=== PATIENT | female | born 1980 | race Caucasian/White ===

== ENCOUNTER → 2018-09-01 | Day surgery (SDC) | payer BC ==
[2018-08-28 16:38] LABS: BASOPHILS # (AUTO) 0.1 (0.0-0.1); BASOPHILS % 0.8 % (0.0-1.0); EOSINOPHILS # (AUTO) 0.5 (0.0-0.4); EOSINOPHILS % 6.2 % (0.0-6.0); HEMATOCRIT 38.9 % (34.2-44.1); HEMOGLOBIN 12.6 g/dL (12.0-16.0); LYMPHOCYTES # (AUTO) 2.7 (1.0-3.2); LYMPHOCYTES % 32.8 % (18.0-39.1); MEAN CORPUSCULAR HEMOGLOBIN 30.4 pg (28-32); MEAN CORPUSCULAR HGB CONC 32.4 g/dL (31-35); MONOCYTES # (AUTO) 0.5 (0.2-0.8); MONOCYTES % 5.8 % (4.4-11.3); NEUTROPHILS # (AUTO) 4.5 (2.1-6.9); NEUTROPHILS % 54.3 % (38.7-80.0); PLATELET COUNT 225 x10e3/uL (140-360); RED BLOOD COUNT 4.14 x10e6/uL (3.6-5.1)
[~2018-09-01] MED LIST: ACETAMINOPHEN 1000 MG/100 ML 100 ML IV ONE; ADDERALL 10 MG10 MG PO; ALPRAZOLAM0.5 MG PO; AMBIEN10 MG PO; BENADRYL50 MG PO; BUPIVACAINE 0.25%/EPI 30ML SDV INJ ONE; CYMBALTA30 MG PO; DEXAMETHASONE OP; DEXAMETHASONE SOD PHOS INJ 4 MG/ML VIAL ONE; FENTANYL CITRATE/PF 100MCG/2 ML INJ ONE; GLYCOPYRROLATE INJ 1MG/ 5 ML SYR ONE; IBUPROFEN800 MG PO; KETOROLAC TROMETHAMINE 30 MG/ML VIAL ONE; MIDAZOLAM HCL 2 MG/2 ML VIAL ONE; NEOSTIGMINE 5 MG/5ML SYR ONE; ONDANSETRON HCL INJ 2MG/ML 2ML 2 MG/ML VIAL ONE; PYRIDIUM100 M1 PO; ROCURONIUM BROMIDE 10 MG/ML 5ML VIAL ONE; SEVOFLURANE INHAL SOLN 250 ML PEN BTL ONE; TOBRAMYCIN OP; Z.0.AMBIEN10 MG PO; Z.0.LORTAB 7.5-5001 PO; Z.0.PREDNISONE10 M1 PO; Z.0.PREDNISONE2.5 MG PO; Z.0.PREDNISONE20 MG PO; Z.0.PREDNISONE5 MG PO; Z.0.PREMARIN0.625 MG PO; Z.0.ULTRAM 50MG50 MG PO; Z.0.XANAX0.5 MG PO; Z.1.CIPROFLOXACIN500 PO; [UNRECOGNIZED DRUG - OTHER] PO
--- OUTSIDE RECORDS SUMMARY | 2018-09-01 08:39 | XMS REPORT | Clinical Summary ---
Author Author [facility] Address Unknown Phone Unavailable Care Team Providers Care Chute Loader Name Role Phone Asked, No Pcp PCP Unavailable Allergies Comments Active Allergy Reactions Severity Noted Date Sulfa (Sulfonamide Rash High 11/08/2017 Antibiotics) Medications End Date Status Medication Sig Dispensed Refills Start Date Active ALPRAZolam (XANAX) 0.5 MG Take 0.5 mg 0 tablet by mouth 2 (two) times a day. Active zolpidem (AMBIEN) 10 mg Take 10 mg by 0 tablet mouth nightly. Active DULoxetine (CYMBALTA) 30 Take 30 mg by 0 MG capsule mouth daily. Active dextroamphetamine-ampheta Take 10 mg by 0 mine (ADDERALL) 10 mg mouth 2 (two) tablet times a day. 11/08/2017 Discontinued riFAMpin (RIFADIN) 300 MG Take 300 mg 0 capsule by mouth 2 8 (two) times a day. 11/12/2017 Discontinued riFAMpin (RIFADIN) 300 MG Take 300 mg 0 capsule by mouth 8 daily. 11/12/2017 Discontinued minocycline Take 100 mg 0 (MINOCIN,DYNACIN) 100 MG by mouth 2 8 capsule (two) times a day. 11/12/2017 Discontinued HYDROcodone-acetaminophen Take 1 tablet 0 (NORCO) 5-325 mg per by mouth tablet every 4 (four) hours while awake. 11/12/2017 Discontinued clarithromycin (BIAXIN) Take 250 mg 0 250 MG tablet by mouth 2 (two) times a day. 12/10/2017 tamsulosin (FLOMAX) 0.4 Take 1 30 capsule 0 mg capsule capsule (0.4 8 mg total) by mouth daily for 30 days. 12/10/2017 pantoprazole (PROTONIX) Take 1 tablet 30 tablet 0 40 MG EC tablet (40 mg total) 8 by mouth daily for 30 days. 11/12/2017 Discontinued traMADol (ULTRAM) 50 mg Take 1 tablet 21 tablet 0 tablet (50 mg total) 8 by mouth every 8 (eight) hours as needed for moderate pain for up to 7 days. Active Problems Problem Noted Date Kidney stone 11/08/2017 Encounters Care Team Description Date Type Specialty René Liao MD Kidney stone (Primary Dx); Nephrolithiasis 11/12/2017 Office Visit Urology René Liao MD 11/10/2017 Telephone Urology Richardson Kennedy DO Nephrolithiasis (Primary Dx) 11/08/2017 Hospital General Surgery - Encounter 11/09/2017 Richardson Kennedy DO 11/08/2017 Orders Only General Internal Medicine after 08/31/2017 Social History Date Tobacco Use Types Packs/Day Years Used Current Every Day Smoker Cigarettes 0.25 10 Smokeless Tobacco: Never Used Tobacco Cessation: Ready to Quit: No; Counseling Given: Yes Alcohol Use Drinks/Week oz/Week Comments Yes 3 Glasses of 3.6 wine 3 Cans of beer Sex Assigned at Date Recorded Not on file Industry Job Start Date Occupation Not on file Not on file Not on file Travel End Travel History Travel Start No recent travel history available. Last Filed Vital Signs Time Taken Vital Sign Reading 11/09/2017 11:55 AM CDT Blood Pressure 98/56 11/09/2017 11:55 AM CDT Pulse 69 11/09/2017 11:55 AM CDT Temperature 36.6 C (97.9 F) 11/09/2017 11:55 AM CDT Respiratory Rate 18 11/09/2017 11:55 AM CDT Oxygen Saturation 100% - Inhaled Oxygen - Concentration - Weight - - Height - - Body Mass Index - Plan of Treatment Health Maintenance Due Date Last Done Comments CERVICAL CANCER SCREENING 2001 INFLUENZA VACCINE 11/19/2018 Procedures Comments Procedure Name Priority Date/Time Associated Diagnosis XR ABDOMEN 1 VW Routine 11/09/2017 11:24 AM CDT ZZESTIMATED GFR Routine 11/09/2017 5:47 AM CDT HC COMPLETE BLD COUNT Routine 11/09/2017 W/AUTO DIFF 5:47 AM CDT BASIC METABOLIC PANEL Routine 11/09/2017 5:47 AM CDT after 08/31/2017 Results * XR Abdomen 1 Vw (11/09/2017 11:24 AM CDT) Narrative Performed At PROCEDURE:XR ABDOMEN 1 VW [facility] CLINICAL HISTORY:Abd painunspecified COMPARISON:None. TECHNIQUE: A single view of the abdomen was performed in the AP supine projection. FINDINGS: Please note that the hemidiaphragms and upper abdomen have been excluded from the image field and cannot be evaluated. No indirect evidence of free air is seen.. No distended loops of small or large bowel are identified. Multiple surgical doris are seen in the left upper quadrant of the abdomen likely related to prior bowel surgery. No radiopaque calculus is identified in the abdomen. Multiple phleboliths are demonstrated in the pelvis. IMPRESSION: Nonspecific bowel gas pattern. Mild constipation. [id number] . Procedure Note Interface, Radiology Results Incoming - 11/09/2017 11:38 AM CDT PROCEDURE: XR ABDOMEN 1 VW CLINICAL HISTORY: Abd pain unspecified COMPARISON: None. TECHNIQUE: A single view of the abdomen was performed in the AP supine projection. FINDINGS: Please note that the hemidiaphragms and upper abdomen have been excluded from the image field and cannot be evaluated. No indirect evidence of free air is seen.. No distended loops of small or large bowel are identified. Multiple surgical doris are seen in the left upper quadrant of the abdomen likely related to prior bowel surgery. No radiopaque calculus is identified in the abdomen. Multiple phleboliths are demonstrated in the pelvis. IMPRESSION: Nonspecific bowel gas pattern. Mild constipation. [id number] . Performing Organization Address City/State/Zipcode Phone Number [facility] [address] [place] [address] * Estimated GFR (11/09/2017 5:47 AM CDT) GFR Non Af Amer 81 mL/min/1.73 m2 [facility] DEPARTMENT OF PATHOLOGY AND GENOMIC MEDICINE GFR Af Amer >90 mL/min/1.73 m2 [facility] DEPARTMENT OF Comment: PATHOLOGY AND Chronic kidney disease: <60 GENOMIC MEDICINE mL/min/1.73m2 Kidney failure: <15 mL/min/1.73m2 The estimated GFR is calculated from the IDMS-traceable Modification of Diet in Renal Disease Equation. The accuracy of the calculation is poor when the creatinine is normal. Calculated values >90 mL/min/1.73m2 are not reported. This equation has not been validated in children (<18 years), women, the elderly (>70 years), or ethnic groups other than Caucasians and Americans. Specimen Plasma specimen Performing Organization Address City/State/Zipcode Phone Number [facility] [address] [place] [address] PATHOLOGY AND GENOMIC MEDICINE * CBC with platelet and differential (11/09/2017 5:47 AM CDT) WBC 5.22 4.50 - 11.00 k/uL [facility] PATHOLOGY AND GENOMIC MEDICINE RBC 3.75 (L) 4.20 - 5.50 m/uL [facility] PATHOLOGY AND GENOMIC MEDICINE HGB 11.4 (L) 12.0 - 16.0 g/dL [facility] PATHOLOGY AND GENOMIC MEDICINE HCT 34.6 (L) 37.0 - 47.0 % [facility] PATHOLOGY AND GENOMIC MEDICINE MCV 92.3 82.0 - 100.0 fL [facility] DEPARTMENT PATHOLOGY AND GENOMIC MEDICINE MCH 30.4 27.0 - 34.0 pg [facility] PATHOLOGY AND GENOMIC MEDICINE MCHC 32.9 31.0 - 37.0 g/dL [facility] PATHOLOGY AND GENOMIC MEDICINE RDW - SD 44.6 37.0 - 55.0 fL [facility] OF PATHOLOGY AND GENOMIC MEDICINE MPV 9.8 8.8 - 13.2 fL [facility] DEPARTMENT OF PATHOLOGY AND GENOMIC MEDICINE Platelet count 179 150 - 400 k/uL [facility] PATHOLOGY AND GENOMIC MEDICINE Nucleated RBC 0.00 /100 WBC [facility] DEPARTMENT PATHOLOGY AND GENOMIC MEDICINE Neutrophils 37.5 (L) 39.0 - 69.0 % [facility] DEPARTMENT PATHOLOGY AND GENOMIC MEDICINE Lymphocytes 43.1 25.0 - 45.0 % [facility] PATHOLOGY AND GENOMIC MEDICINE Monocytes 8.6 0.0 - 10.0 % [facility] PATHOLOGY AND GENOMIC MEDICINE Eosinophils 9.8 (H) 0.0 - 5.0 % [facility] PATHOLOGY AND GENOMIC MEDICINE Basophils 1.0 0.0 - 1.0 % [facility] DEPARTMENT OF PATHOLOGY AND GENOMIC MEDICINE Specimen Blood Performing Organization Address [facility]/Zipcode Phone Number [facility] DEPARTMENT [address] [place] [address] PATHOLOGY AND GENOMIC MEDICINE * Basic metabolic panel (11/09/2017 5:47 AM CDT) Sodium 140 135 - 148 mEq/L [facility] DEPARTMENT OF PATHOLOGY AND GENOMIC MEDICINE Potassium 4.1 3.5 - 5.0 mEq/L [facility] DEPARTMENT OF PATHOLOGY AND GENOMIC MEDICINE Chloride 109 98 - 112 mEq/L [facility] DEPARTMENT OF PATHOLOGY AND GENOMIC MEDICINE CO2 25 24 - 31 mEq/L [facility] DEPARTMENT OF PATHOLOGY AND GENOMIC MEDICINE Anion gap 6@ANIO (L) 7 - 15 mEq/L [facility] DEPARTMENT OF PATHOLOGY AND GENOMIC MEDICINE BUN 11 6 - 20 mg/dL [facility] DEPARTMENT OF PATHOLOGY AND GENOMIC MEDICINE Creatinine 0.8 0.5 - 0.9 mg/dL [facility] DEPARTMENT OF PATHOLOGY AND GENOMIC MEDICINE Glucose 91 65 - 99 mg/dL [facility] DEPARTMENT OF PATHOLOGY AND GENOMIC MEDICINE Calcium 7.7 (L) 8.3 - 10.2 mg/dL [facility] DEPARTMENT OF PATHOLOGY AND GENOMIC MEDICINE Specimen Plasma specimen Performing Organization Address City/[facility]/Zipcode Phone Number [facility] [address] [place] [address] PATHOLOGY AND GENOMIC MEDICINE after 08/31/2017 Insurance Payer Benefit Subscriber ID Type Phone Address Plan / Group BCBS BCBS OUT xxxxxxxxxxxxxxx PPO OF STATE Advance Directives Patient has advance care planning documents on file. For more information, jose angel reyes contact: Roldan Thomas [address] [place] [address]
--- OUTSIDE RECORDS SUMMARY | 2018-09-01 08:40 | XMS REPORT ---
Author Author [facility] Address Unknown Phone Unavailable Care Team Providers Care Dag Sprayer Name Role Phone Unavailable Unavailable Payers Payer Name Policy Type Policy Number Effective Date Expiration Date Problems This patient has no known problems. Allergies, Adverse Reactions, Alerts Allergy Name Allergy Type Status Severity Reaction(s) Onset Date Inactive Date Treating Clinician Comments Sulfa (Sulfonamide Antibiotics) DA Active SV 2018-02-26 00:00:00 Sulfa (Sulfonamide Antibiotics) DA Active U 2012-08-22 00:00:00 Medications This patient has no known medications. Encounters Start Date/Time End Date/Time Encounter Type Admission Type Attending Clinicians Care Facility Care Department Encounter ID 2018-08-26 05:20:00 2018-08-26 05:20:00 Emergency E [id number] Results Test Description Test Time Test Comments Text Results Atomic Results Result Comments BREAST ULTRASOUND RIGHT 2018-08-26 14:46:52 - BREAST ULTRASOUND RIGHTULTRASOUND OF RIGHT BREAST AND RIGHT AXILLA: 08/26/2018CLINICAL: Short Term follow up. Comparison is made to exams dated 06/10/2018 ultrasound, 08/13/2017 ultrasound, and 02/14/2017 ultrasound - [facility]-. Real-time ultrasound of the right breast and axilla was performed. At 1 o'clock, 3 cm from the nipple, there is redemonstration of a mixed hyperechoic and hypoechoic area without internal vascularity on color flow imaging. This area measures 2.7 cm in greatest total dimension. There has been no significant interval change.Morphologically normal-appearing lymph nodes are seen in the right right axilla.IMPRESSION: PROBABLY BENIGN - FOLLOW-UP RECOMMENDEDProbably benign, mixed hyperechoic and hypoechoic area without significant interval change. A follow- up right ultrasound in 6 months is recommended to demonstrate stability. Findings and recommendations were discussed with the patient at the conclusion of the examination today.Katelynn Mac D.O. al/:08/26/2018 14:46:52 Manager Generation: Kaleigh COSTA, [facility]-letter sent: Short Term Follow Up Ultrasound BI-RADS: 3 Probably benign DIAG MAMM BILATERAL CAD DIGITAL W/AUGMENTATION 2018-06-10 14:17:17 - DIAG MAMM BILATERAL CAD DIGITAL W/AUGMENTATIONBILATERAL DIGITAL DIAGNOSTIC MAMMOGRAM WITH CAD WITH AUGMENTATION: 06/10/2018CLINICAL: 6 Month follow-up. Current mammographic images were evaluated by either a bMenu M-Vu or a BioVidriaer CAD (computer aided detection system). Comparison is made to exams dated 02/14/2017 mammogram and [facility] The tissue of both breasts is heterogeneously dense. This may lower the sensitivity of mammography. Retropectoral silicone implants are mammographically intact.Dystrophic calcifications from fat necrosis are seen in the upper inner quadrant of the right breast at the patient's area of concern.No suspicious mass, architectural distortion, malignant type calcification, or lymph node abnormality detected. INCOMPLETE ASSESSMENT: ADDITIONAL IMAGING EVALUATION RECOMMENDEDBilateral breast ultrasound was subsequently performed.- BREAST ULTRASOUND BILATERALULTRASOUND OF BOTH BREASTS AND BOTH AXILLA: 06/10/2018 Comparison is made to exams dated 02/14/2017 mammogram and [facility] Real-time ultrasound of both breasts and both axilla was performed. LEFT BREAST: No suspicious masses or areas of abnormal shadowing are identified in the left breast. Morphologically normal-appearing lymph nodes are seen in the left axilla.RIGHT BREAST: Underlying an area of bruising on the skin, there are mixed echogenic and anechoic areas at 1 o'clock, 3 cm from the nipple, without internal vascularity with color flow imaging. The smaller area measuring 9 mm has been present since 01/2017. The larger area is new and measures 1.6 cm in greatest dimension. Sonographic appearance suggests fat necrosis. Morphologically normal-appearing lymph nodes are seen in the right right axilla.IMPRESSION: PROBABLY BENIGN - FOLLOW-UP RECOMMENDEDRIGHT BREAST: Probably benign, mixed echogenic and anechoic areas at 1 o'clock, 3 cm from the nipple, in the right breast. Imaging findings suggest fat necrosis. A follow-up ultrasound of the right breast in 3 months is recommended. LEFT BREAST: No evidence of malignancy in the left breast.Katelynn Mac D.O. al/:06/10/2018 14:17:17 Manager Generation: Tennille COSTA, [facility]-letter sent: Short Term Follow Up Mammogram BI-RADS: 0 Indeterminate Ultrasound BI-RADS: 3 Probably benign BREAST ULTRASOUND BILATERAL 2018-06-10 14:17:17 - DIAG MAMM BILATERAL CAD DIGITAL W/AUGMENTATIONBILATERAL DIGITAL DIAGNOSTIC MAMMOGRAM WITH CAD WITH AUGMENTATION: 06/10/2018CLINICAL: 6 Month follow-up. Current mammographic images were evaluated by either a bMenu M-Vu or a BioVidriaer CAD (computer aided detection system). Comparison is made to exams dated 02/14/2017 mammogram and [facility] The tissue of both breasts is heterogeneously dense. This may lower the sensitivity of mammography. Retropectoral silicone implants are mammographically intact.Dystrophic calcifications from fat necrosis are seen in the upper inner quadrant of the right breast at the patient's area of concern.No suspicious mass, architectural distortion, malignant type calcification, or lymph node abnormality detected. INCOMPLETE ASSESSMENT: ADDITIONAL IMAGING EVALUATION RECOMMENDEDBilateral breast ultrasound was subsequently performed.- BREAST ULTRASOUND BILATERALULTRASOUND OF BOTH BREASTS AND BOTH AXILLA: 06/10/2018Co mparison is made to exams dated 02/14/2017 mammogram and [facility]06[facility] Real-time ultrasound of both breasts and both axilla was performed. LEFT BREAST: No suspicious masses or areas of abnormal shadowing are identified in the left breast. Morphologically normal-appearing lymph nodes are seen in the left axilla.RIGHT BREAST: Underlying an area of bruising on the skin, there are mixed echogenic and anechoic areas at 1 o'clock, 3 cm from the nipple, without internal vascularity with color flow imaging. The smaller area measuring 9 mm has been present since 01/2017. The larger area is new and measures 1.6 cm in greatest dimension. Sonographic appearance suggests fat necrosis. Morphologically normal-appearing lymph nodes are seen in the right right axilla.IMPRESSION: PROBABLY BENIGN - FOLLOW-UP RECOMMENDEDRIGHT BREAST: Probably benign, mixed echogenic and anechoic areas at 1 o'clock, 3 cm from the nipple, in the right breast. Imaging findings suggest fat necrosis. A follow-up ultrasound of the right breast in 3 months is recommended. LEFT BREAST: No evidence of malignancy in the left breast.Katelynn king/:06/10/2018 14:17:17 Manager Generation: Tennille COSTA, [facility]-FWletter sent: Short Term Follow Up Mammogram BI-RADS: 0 Indeterminate Ultrasound BI-RADS: 3 Probably benign
[2018-09-01 13:30] VITALS: BP 118/75
--- NOTE | 2018-09-04 10:13 | Operative Report ---
DATE OF PROCEDURE: SURGEON: Candida Means MD PREOPERATIVE DIAGNOSIS: Pelvic pain. POSTOPERATIVE DIAGNOSIS: Pelvic pain. PROCEDURES: Laparoscopy, ablation of endometriosis, and lysis of adhesions. CSO: Dr. Garcia. COMPLICATIONS: None. ESTIMATED BLOOD LOSS: Minimal. PROCEDURE IN DETAIL: The patient was taken to the OR. General anesthesia was induced. She was prepped and draped in a sterile fashion, placed in supine position with the indwelling Vega catheter was placed inside the bladder for drainage. A 5 mm incision was made infraumbilically and 5 mm bladeless trocar and cannula was passed through the umbilicus into the abdominal cavity under direct visualization. Trocars were removed and abdomen was insufflated with carbon dioxide gas. The scope was passed through the sleeve into the abdominal cavity. Two other ports were made in the right side of the abdomen after making 5 mm skin incision with the scope and a 5 mm bladeless trocar and cannula was placed through the abdominal wall into the abdominal cavity under direct visualization. Trocars were removed, and using fenestrated bowel grasper and disposable laparoscopic scissors, the following findings were noted. Excessive adhesions between the small bowel and anterior abdominal wall, adhesions between the pelvic wall and the anterior abdominal wall, the pelvis is completely obstructed. No evidence of ovaries, small endometrial lesion in the anterior peritoneum just above the symphysis pubis. Hysterectomy was noted. Using Monopolar scissors and graspers, bowels were dissected off the anterior abdominal wall using the scissors without difficulty. The endometrium was burned just above the bladder. Tubes and ovaries were absent. Suction irrigation of peritoneal cavity was performed. At the end of the procedure, there was still adhesions between the pelvic or anterior abdominal wall, small bowel was completely lysed off in the pelvis. Abdomen was deflated and the instruments were removed from the abdomen. The rectus fascia at the umbilicus was approximated using 2-0 Vicryl and the skin was closed with Dermabond. Marcaine with epinephrine was injected subcutaneous and the patient tolerated the procedure well. Lap and needle count was correct x2 at the end of the procedure. Candida Means MD DD/MODL /[id number]
== END | disposition home or self-care (01) ==
LOC: OR 08:38 → MERGE 10:30
PROVIDERS: ATTEND Obstetrics & Gynecology
DX: N80.3 Endometriosis of pelvic peritoneum (principal); N73.6 Female pelvic peritoneal adhesions (postinfective); N83.202 Unspecified ovarian cyst, left side; Z90.710 Acquired absence of both cervix and uterus; R32 Unspecified urinary incontinence; K59.00 Constipation, unspecified; F98.8 Other specified behavioral and emotional disorders with onset usually occurring in childhood and adolescence; F31.9 Bipolar disorder, unspecified; F17.200 Nicotine dependence, unspecified, uncomplicated; Z88.2 Allergy status to sulfonamides; Z01.812 Encounter for preprocedural laboratory examination
CPT/HCPCS: 36415; 58662; 84702; 85025; J0131; J1100; J1885; J2250; J2405; J3490